=== PATIENT | female | born 1965 | race Caucasian/White ===

== ENCOUNTER 2020-04-18 10:19 | Outpatient (REF) | payer OTHER, SELFPAY ==
--- NOTE | 2020-04-22 12:12 | MHC.AU.P13 ---
Adult Audiological Evaluation Date of Visit: 04/18/20 Inside Outside Sales Representative Used: Not Applicable Reason for Appointment: Audiologic re-evaluation to determine possible change in hearing ability. Since last tested in February 2019, Matilda has been diagnosed with Diabetes. She also was diagnosed with COVID-19 on 03/11/2020 and experienced right ear pain resulting from a sinus infection and middle ear fluid. Matilda was prescribed steroids which she completed approximately 2 weeks ago. Does patient feel they have a hearing loss?: Yes If Yes, Which Ear?: Both Ears Has hearing been tested previously?: Yes Previous Hearing Test Results: 03/01/2019 [facility] Bilateral borderline normal/ mild to moderate sensorineural hearing loss with the left ear being poorer than the right only at 8000 Hz. Medical History: Medical History: Diabetes, Thyroid Disease Medication List: Junuvia, Omeprazole, L-Thyroxine, Bupropion, Vitamin B12, Citalopram, Pravastatin, Lorazepam (as needed), Trazadone (as needed) Otoscopy: Right Ear: Unremarkable Left Ear: Unremarkable Tympanometry: Tympanometry performed due to: To assess integrity of the middle ear system Right Ear: Normal Middle Ear System (Type A) Left Ear: Normal Middle Ear System (Type A) Otoacoustic Emissions Right Ear Results: Not performed at today's visit. Left Ear Results: Not performed at today's visit. Hearing Evaluation: Transducer(s) Used: Insert Earphones Bone Conduction Method: Conventional Audiometry Stimuli Used: Pure Tones Right Ear: Description of Hearing: Borderline normal to mild sensorineural hearing loss Left Ear: Description of Hearing: Borderline normal to mild sensorineural hearing loss Speech Recognition Threshold (SRT): Method Used: Not performed at today's visit. Word Discrimination: Method: Recorded Lists Word Lists Used: NU-6 Right Ear: 100% at 70 dB HL Left Ear: 100% at 70 dB HL QuickSIN: Unaided Binaural Quick SIN Test: 2 dB SNR Loss which falls within the normal range suggesting Matilda does not experience any more difficulty understanding speech with increasing levels of background noise than is expected. Comparison: Compared to the most recent evaluation: Hearing is stable. Recommendations: Advise audiologic re-evaluation annually to monitor hearing as Matilda's diagnoses of Diabetes and thyroid disorder places her at higher risk for progressive hearing loss. Will send a reminder card. Diagnosis: Primary Diagnosis: H90.3 Bilateral Sensorineural Hearing Loss Services Performed: Comprehensive Audiological Evaluation (CPT 44658) Tympanometry (CPT 95285) Signature: Provider: Miki Arias, SEYMOUR-A
== END 2020-04-18 10:20 | disposition home or self-care (01) ==
LOC: HO.SH 10:19
PROVIDERS: Visit Provider Pediatrics
DX: H90.3 Sensorineural hearing loss, bilateral (principal)
CPT/HCPCS: 92557; 92567

== ENCOUNTER 2021-05-15 09:14 | Outpatient (REF) | payer OTHER, SELFPAY ==
--- NOTE | 2021-05-15 16:18 | MHC.AU.ANR ---
Adult Audiological Evaluation Date of Visit: 05/15/21 Reason for Appointment: Audiological re-evaluation to determine if Matilda has had a change in her hearing sensitivity. She feels that overall her hearing has improved. She denies any recent hearing difficulties. Previous testing has should a mild hearing loss with a slight high-frequency asymmetry, left ear worse than right. Does patient feel they have a hearing loss?: No Has hearing been tested previously?: Yes Previous Hearing Test Results: [facility] [place], 04/22/2020- Normal middle-ear function bilaterally. Borderline normal to mild sensorineural hearing loss bilaterally. 2 dB SNR loss on QuickSIN. [facility] [place], 03/01/2019- Borderline normal to mild to moderate sensorineural hearing loss with the left ear poorer than the right at 8000 Hz. Medical History: Medical History: Diabetes, Thyroid Disease Medication List: Estradiol / Norethindrone, Levothyroxine, omeprazole, bupropion, pravastatin. Recently stopped taking metformin on her own and she felt her blood sugar was getting too low throughout the night. Otoscopy: Right Ear: Unremarkable Left Ear: Unremarkable Tympanometry: Tympanometry performed due to: To assess integrity of the middle ear system Right Ear: Normal Middle Ear System (Type A) Left Ear: Normal Middle Ear System (Type A) Hearing Evaluation: Transducer(s) Used: Insert Earphones, Bone Conduction Method: Conventional Audiometry Stimuli Used: Pure Tones Right Ear: Description of Hearing: Borderline-normal hearing at 250 Hz, sloping to a mild sensorineural hearing loss from 500-2000 Hz, rising to normal hearing from 3919-9268 Hz. Left Ear: Description of Hearing: Borderline-normal hearing at 250 Hz, sloping to a mild sensorineural hearing loss at 500 Hz, rising to borderline-normal hearing 4816-6122 Hz, and sloping to a mild hearing loss at 8000 Hz. Speech Recognition Threshold (SRT): Method Used: Monitored Live Voice Stimuli Used: Spondee Words Right Ear: 30 dBHL Left Ear: 25 dBHL Word Discrimination: Method: Recorded Lists Word Lists Used: NU-6 Right Ear: 100% at 70 dBHL Left Ear: 100% at 70 dBHL QuickSIN: 2 dB SNR loss when presented binaurally at 70 dBHL. Score falls within the normal range. Comparison: Compared to the most recent evaluation: Hearing is stable. Recommendations: Audiological re-evaluation in one year. Amplification is not warranted at this time. Hearing protection should be used when around loud noise. Diagnosis: Primary Diagnosis: H90.3 Bilateral Sensorineural Hearing Loss Services Performed: Services Performed: Comprehensive Audiological Evaluation (CPT 80421) Tympanometry (CPT 46589) Signature: Provider: Miki Dean, CCC-A
== END 2021-05-15 09:15 | disposition home or self-care (01) ==
LOC: HO.SH 09:14
PROVIDERS: Visit Provider Internal Medicine
DX: Z01.118 Encounter for examination of ears and hearing with other abnormal findings (principal); H90.3 Sensorineural hearing loss, bilateral
CPT/HCPCS: 92557; 92567

== ENCOUNTER 2022-06-30 13:16 | Outpatient (REF) | payer OTHER, SELFPAY | END 2022-06-30 13:17 | disposition home or self-care (01) | LOC: HO.SH 13:16 | PROVIDERS: Visit Provider Internal Medicine | DX: Z01.118 Encounter for examination of ears and hearing with other abnormal findings (principal); H90.3 Sensorineural hearing loss, bilateral | CPT/HCPCS: 92557; 92567 ==